=== PATIENT | male | born 2000 | race Caucasian/White ===

== ENCOUNTER 2018-05-05 15:08 | Emergency (ER) | payer MEDICAID ==
[2018-05-05] MEDS: IBUPROFEN 600 MG TAB PO (18:00)
== END 2018-05-05 19:34 | disposition home or self-care (01) ==
LOC: FTE 15:08
DX: S20.219A Contusion of unspecified front wall of thorax, initial encounter (principal); V49.59XA Passenger injured in collision with other motor vehicles in traffic accident, initial encounter
CPT/HCPCS: 71045; 99283-25